=== PATIENT | female | born 1965 | race Caucasian/White ===

== ENCOUNTER 2020-06-15 07:39 | Day surgery (SDC) | payer BC ==
[2020-06-15] MEDS ORDERED: Dextrose 5%-Lactated Ringers 1,000 ML IV SCH (08:15)
[2020-06-15] MEDS ORDERED: Glycopyrrolate 0.2 MG/ML 2 ML SDV IVPUSH ONE (09:00)
[2020-06-15] MEDS ORDERED: Lidocaine 5% 700 MG Patch TRDERM ONE (10:03)
[2020-06-15] MEDS ORDERED: Midazolam 1 MG/ML 2 ML SDV ONE (11:22)
[2020-06-15] MEDS ORDERED: fentaNYL 100 MCG/2 ML SDV ONE (11:22)
[2020-06-15] MEDS ORDERED: Propofol 200 MG/20 ML SDV ONE ×2 (11:22→11:57)
[2020-06-15] MEDS ORDERED: Hydrocortisone Sodium Succinate 100 MG/2 ML SDV IVPUSH PRN (13:00)
[2020-06-15] MEDS ORDERED: diphenhydrAMINE 50 MG/ML SDV IVPUSH PRN (13:00)
--- NOTE | 2020-06-22 15:10 | OR ---
DATE OF PROCEDURE: 06/15/2020 SURGEON: Simon Martins MD PREOPERATIVE DIAGNOSES: 1. Status post laparoscopic band placement with severe gastroesophageal reflux disease. 2. Indication for screening colonoscopy. POSTOPERATIVE DIAGNOSES: 1. Status post laparoscopic band placement with severe gastroesophageal reflux disease with esophageal bile and food retention and associated reddened laryngopharynx associated with ongoing aspiration and then mild antral gastritis. 2. Colonoscopy showing 1 cm polyps at: a. Transverse colon. b. Mid sigmoid colon. OPERATIVE PROCEDURES: 1. Esophagogastroduodenoscopy with: a. Antral biopsies for CLOtest. b. Flexible colonoscopy with polypectomy by snare technique x2. ANESTHESIA: IV sedation. INDICATION FOR PROCEDURE: A 55-year-old status post laparoscopic adjustable gastric band placement in [place] around 15 years ago. She presents with worsening reflux over the last several months with some episodes of aspiration of gastric and esophageal contents. This is despite ongoing medical management and deflation of her band. After preoperative evaluation and discussion, she wished to proceed with upper GI endoscopy for investigation of her band status. She also meets criteria for screening colonoscopy and will undergo colonoscopy. Potential risks including bleeding and perforation were discussed, and the patient wishes to proceed. DETAILS OF PROCEDURE: The patient was taken to the operating room and placed in a left lateral decubitus position. IV sedation was administered, after which the upper GI endoscope was passed orally through the length of the esophagus and into the stomach with retroflexion view of the fundus and thereafter through the pyloric channel into the junction of the third and fourth portions of the duodenum. Findings included reddened laryngopharynx consistent with the patient's history of some episodes of aspiration. As one entered the esophagus, the esophageal sphincter, but was unremarkable; however, as one entered the esophageal body, the esophagus was noted to be strikingly dilated, particularly in the distal aspect there were extreme reddened areas of the esophagus diffusely with retained bile and some undigested solids. The scope easily passed through the imprint of the band, i.e., there was no mechanical obstruction. Within the antrum, there was some mild redness, otherwise the remainder of the stomach, pyloric channel, and visualized portions of the duodenum were unremarkable. At this point, biopsies were obtained from the antrum and sent for CLOtest for H pylori. Minimal bleeding from the biopsy site was seen and the procedure then concluded. Attention was then taken to the colonoscopy. Initial digital rectal exam was performed and was unremarkable. Colonoscope was then passed into the rectum with retroflexion revealing uncomplicated hemorrhoidal columns. Scope was then eventually passed into the level of the rectum with retroflexion revealing uncomplicated hemorrhoidal columns. Scope was then eventually passed to the level of the cecum. The prep was quite good. To that level, there were no diverticula or areas of colitis. There were 2 roughly 1 cm polyps; 1 in the transverse colon, 1 in the mid sigmoid colon. Both of these were excised by means of cautery and snare technique and sent for histologic evaluation. Good hemostasis was noted. Procedure then concluded and the patient was taken to the recovery room in satisfactory condition. With regard to the colonoscopy, recommendation would be to proceed with a repeat colonoscopy in 3 years assuming that the present polyps are premalignant. Otherwise, the patient at this point is developing severe complications related to the band and would be benefitted by conversion of band status to Carmella-en-Y gastric bypass. Her insurance company will be contacted regarding that application. Simon Martins MD /[id number]
== END 2020-06-15 14:30 | disposition home or self-care (01) ==
LOC: JP.SDS 07:39
PROVIDERS: ATTEND Surgery
DX: Z12.11 Encounter for screening for malignant neoplasm of colon (principal); D17.5 Benign lipomatous neoplasm of intra-abdominal organs; K63.5 Polyp of colon; K21.9 Gastro-esophageal reflux disease without esophagitis; K29.70 Gastritis, unspecified, without bleeding; K64.9 Unspecified hemorrhoids; E66.9 Obesity, unspecified; Z98.84 Bariatric surgery status; Z68.37 Body mass index [BMI] 37.0-37.9, adult
CPT/HCPCS: 87081; 88305; A9270-GY; J2250; J2704; J3010; J3490; J7121; Q0138

== ENCOUNTER 2020-08-07 05:33 | Inpatient (IN) | payer BC ==
[~2020-08-07 05:33] MED LIST: Acetaminophen 500 MG Tab PO ONE; Celecoxib 200 MG Cap PO ONE; Scopolamine 1.5 MG Transdermal Patch TRDERM ONE
[2020-08-07] MEDS ORDERED: Dextrose 5%-Lactated Ringers 1,000 ML IV SCH ×2 (06:00→12:15)
[2020-08-07] MEDS ORDERED: Meropenem 500 MG SDV ONE (06:28)
[2020-08-07] MEDS ORDERED: fentaNYL 250 MCG/5 ML SDV ONE ×2 (07:04→09:23)
[2020-08-07] MEDS ORDERED: Ondansetron 4 MG/2 ML SDV ONE (07:05)
[2020-08-07] MEDS ORDERED: Propofol 200 MG/20 ML SDV ONE (07:05)
[2020-08-07] MEDS ORDERED: Glycopyrrolate 0.2 MG/ML 5 ML MDV ONE (07:05)
[2020-08-07] MEDS ORDERED: Neostigmine Methylsulfate 1 MG/ML 5 ML Syringe ONE (07:05)
[2020-08-07] MEDS ORDERED: Dexamethasone 4 MG/ML SDV ONE (07:05)
[2020-08-07] MEDS ORDERED: Rocuronium 50 MG/5 ML Vial ONE (07:05)
[2020-08-07] MEDS ORDERED: Succinylcholine 200 MG/10 ML MDV ONE (07:05)
[2020-08-07] MEDS ORDERED: Lactated Ringers 1,000 ML ONE (07:08)
[2020-08-07] MEDS ORDERED: Meropenem 500 MG in Sodium Chloride 0.9% 50 ML IV ONE (07:15)
[2020-08-07] MEDS ORDERED: Ketamine 50 MG in Sodium Chloride 0.9% 49.5 ML IV SCH (07:30)
[2020-08-07] MEDS ORDERED: Ketamine 500 MG/5 ML MDV IV SCH (07:30)
[2020-08-07] MEDS ORDERED: Ropivacaine 44 ML, dexAMETHasone 8 MG, EPINEPHrine 0.4 MG, Sodium Chloride 0.9% 33.6 ML NERVRT SCH ×4 (07:30)
[2020-08-07] MEDS ORDERED: Magnesium Sulfate 2.6 GM in Sodium Chloride 0.9% 100 ML IV SCH (07:30)
[2020-08-07] MEDS ORDERED: Magnesium Sulfate 2.8 GM in Sodium Chloride 0.9% 250 ML IV ONE (08:00)
[2020-08-07] MEDS ORDERED: diphenhydrAMINE 50 MG/ML SDV ONE (10:42)
[2020-08-07] MEDS ORDERED: Cyclobenzaprine 10 MG Tab PO PRN (12:18)
[2020-08-07] MEDS ORDERED: Morphine 2 MG/ML SYRINGE IVPUSH PRN (13:00)
[2020-08-07] MEDS ORDERED: Acetaminophen 500 MG Tab PO PRN (13:00)
[2020-08-07] MEDS ORDERED: Metoclopramide 10 MG/2 ML SDV IVPUSH PRN (13:00)
[2020-08-07] MEDS ORDERED: Ondansetron 4 MG/2 ML SDV IVPUSH PRN (13:00)
[2020-08-07] MEDS ORDERED: oxyCODONE 5 MG Tab PO PRN (13:00)
[2020-08-07] MEDS ORDERED: Labetalol 20 MG/4 ML Syringe IVPUSH PRN (13:00)
[2020-08-07] MEDS ORDERED: diphenhydrAMINE 50 MG/ML SDV IVPUSH PRN (13:00)
[2020-08-07] MEDS ORDERED: hydrOXYzine HCL 100 MG/2 ML SDV IM PRN (13:00)
[2020-08-07] MEDS ORDERED: Calcium Gluconate 10% 1 GM/10 ML SDV IVPUSH PRN (13:00)
[2020-08-07] MEDS ORDERED: traMADol 50 MG Tab PO PRN (13:00)
[2020-08-07] MEDS ORDERED: Morphine 4 MG/ML Syringe IVPUSH PRN (13:00)
[2020-08-07] MEDS ORDERED: Meperidine PF 50 MG/ML Syringe IM PRN (13:31)
[2020-08-07] MEDS: Acetaminophen 500 MG Tab PO SCH ×2 (13:36→21:50)
[2020-08-07] MEDS: Pantoprazole 40 MG Vial IVPUSH SCH (13:36)
[2020-08-07] MEDS ORDERED: Meperidine PF 100 MG/ML Syringe IM PRN ×2 (14:00)
[2020-08-07] MEDS: Meropenem 500 MG in Sodium Chloride 0.9% 50 ML IV SCH ×2 (14:31→20:21)
[2020-08-07] MEDS: Heparin Sodium 5,000 Units/ML Vial SUBCUT SCH (15:43)
[2020-08-07] MEDS ORDERED: MVI, Adult with Vitamin K 10 ML, Thiamine 200 MG, Zinc/Copper/Manganese/Selenium 1 ML i... IV SCH ×4 (16:00)
[2020-08-08] MEDS: Meropenem 500 MG in Sodium Chloride 0.9% 50 ML IV SCH ×3 (02:57→13:38)
[2020-08-08] MEDS ORDERED: Iopamidol 612 MG/ML 50 ML SDV PO STA (03:04)
[2020-08-08] MEDS: Heparin Sodium 5,000 Units/ML Vial SUBCUT SCH ×2 (03:05→16:49)
[2020-08-08] MEDS: Acetaminophen 500 MG Tab PO SCH ×3 (05:37→21:29)
[2020-08-08] MEDS ORDERED: Dextrose 5%-Lactated Ringers 1,000 ML IV SCH (07:35)
[2020-08-08] MEDS ORDERED: hydrOXYzine HCl 25 MG Tab PO PRN (07:39)
[2020-08-08] MEDS ORDERED: Ondansetron 4 MG Tab.DIS PO PRN (07:39)
[2020-08-08] MEDS: Celecoxib 200 MG Cap PO SCH ×2 (08:58→21:29)
[2020-08-08] MEDS: SCOPOLAMINE PATCH CHECK TOP SCH (08:59)
--- NOTE | 2020-08-08 09:12 | CR ---
[facility] HISTORY: Postbariatric surgery FINDINGS: Patient swallowed water-soluble contrast. Upright views of the abdomen show no evidence of extravasation or obstruction. There is a surgical drain in the left upper quadrant. There is patchy left lower lobe airspace disease which may represent some atelectasis IMPRESSION: Status post bariatric surgery No extravasation or obstruction seen Moderate patchy airspace disease left lung base. This may represent some atelectasis. Infiltrate is not excluded. Short-term follow-up two-view chest recommended when patient's condition allows
--- NOTE | 2020-08-08 10:43 | PN ---
DATE OF SERVICE: 08/08/2020 SUBJECTIVE: Neha Ortiz is postoperative day #1. Her upper GI was normal. She had 400 mL in, 3475 mL out. BONNIE drain put out 60 mL of a serosanguineous drainage. She has been up ambulating and pain has been controlled per energy protocol. REVIEW OF SYSTEMS: Remainder of review of systems negative for any pertinent positives and negatives. OBJECTIVE: GENERAL: Neha Ortiz is a pleasant 55-year-old female. She is alert and orientated. VITAL SIGNS: TPR 97.4, 70, 16, blood pressure 98/63. HEENT: Negative. NECK: Supple. HEART: Regular rate and rhythm. LUNGS: Clear. ABDOMEN: Dressing dry and intact. BONNIE drain as above. EXTREMITIES: Without peripheral edema. ASSESSMENT: 1. Laparoscopic Carmella-en-Y gastric bypass surgery. 2. Liver biopsy. 3. Removal of laparoscopic adjustable gastric band components. 4. Partial gastrectomy. 5. Repair of diaphragmatic hernia. POSTOPERATIVE DIAGNOSES: 1. Intact lap band with persistent morbid obesity. 2. Hepatomegaly. 3. Area of gastric ischemia. 4. Status post takedown band, laparoscopic gastric band component. 5. Repair of paraesophageal diaphragmatic hernia. 6. Date of surgery: 08/07/2020. Surgeon: Simon Martins MD. PLAN: 1. Discontinue Little catheter. 2. Decrease IV to 60 mL per hour. 3. Step 1 gastric bypass diet with milk and then protein drinks. No yogurt and no pudding. 4. Atarax 25 mg q.4 hours p.r.n. pain. 5. Zofran ODT 4 mg q.4 hours p.r.n. nausea. 6. Discontinue cardiac monitoring. 7. Dressing off, may shower. 8. Discontinue demerol IM for pain management. 9. Continue use of incentive spirometer. 10.Communication order written for the patient to have 3 med cups at bedside and to drink 1 every 20 minutes totaling 3 per hour. 11.Evaluate p.r.n. or in a.m. Elizabeth Terry PA-C /[id number]
[2020-08-08] MEDS: Pantoprazole 40 MG Vial IVPUSH SCH (13:39)
[2020-08-08] MEDS ORDERED: MVI, Adult with Vitamin K 10 ML, Thiamine 200 MG, Zinc/Copper/Manganese/Selenium 1 ML i... IV SCH ×4 (16:00)
[2020-08-08] MEDS ORDERED: Pantoprazole 40 MG Tab.CR PO SCH (16:30)
[2020-08-09] MEDS: Heparin Sodium 5,000 Units/ML Vial SUBCUT SCH (05:13)
[2020-08-09] MEDS: Acetaminophen 500 MG Tab PO SCH (05:13)
[2020-08-09] MEDS: Celecoxib 200 MG Cap PO SCH (08:25)
[2020-08-09] MEDS: SCOPOLAMINE PATCH CHECK TOP SCH (08:25)
[2020-08-09] MEDS ORDERED: Cyanocobalamin (Vitamin B12) 1,000 MCG/ML SDV IM ONE (09:00)
--- NOTE | 2020-08-09 13:20 | DISCH ---
ADMISSION DIAGNOSES: 1. Morbid obesity. 2. BMI of 39.1. 3. Intolerance to laparoscopic gastric band. 4. Dyslipidemia. 5. Osteoarthritis. DISCHARGE DIAGNOSES: 1. Laparoscopic Carmella-en-Y gastric bypass surgery. 2. Liver biopsy. 3. Removal of laparoscopic adjustable gastric band component. 4. Partial gastrectomy. 5. Repair of diaphragmatic hernia. POSTOPERATIVE DIAGNOSIS: 1. Intact lap band with persistent morbid obesity. 2. Hepatomegaly. 3. Area of gastric ischemia from laparoscopic gastric band. 4. Status post takedown band, laparoscopic gastric band component. 5. Repair of paraesophageal diaphragmatic hernia. 6. Date of surgery: 08/07/2020. Surgeon: Simon Martins MD. HISTORY: Neha is a pleasant 55-year-old female with a laparoscopic adjustable gastric band and persistent weight gain with intolerance to lap band. After preoperative evaluation and discussion of possible risks and possible complications, she wished to proceed with surgical procedure. HOSPITAL COURSE: Neha had her surgery on 08/07/2020. She had no operative complications. On postoperative day #1, her upper GI was normal. She was started on a step 1 gastric bypass diet with milk and protein drinks. Recommend no yogurt and no pudding. Little catheter was discontinued. She was changed to oral pain medication. Pain was well managed with energy protocol. On postoperative day #2, Neha was tolerating a step 1 gastric bypass diet with milk and protein drinks. Vital signs were stable. Activity was good. Oral intake 1880. Urine output 2700. BONNIE drain put out 30 mL of a serosanguineous drainage. Pain was controlled solely by energy protocol and she had adequate bariatric diet teaching, and she was able to be discharged to home without any complications. PHYSICAL EXAMINATION: GENERAL: Neha is a pleasant 55-year-old female. VITAL SIGNS: Height is 5 feet 2 inches, weight is 200 pounds. TPR; 97.9, 58, 16. Blood pressure 119/67. HEENT: Negative. NECK: Supple. HEART: Regular rate and rhythm. LUNGS: Clear. ABDOMEN: Sutures intact in trocar sites, healing well. BONNIE drain will be removed before discharge. EXTREMITIES: Without peripheral edema. DISPOSITION: Discharged to home. CONDITION: Stable and improving. FOLLOWUP: Followup appointment with Elizabeth Terry PA-C, 08/20/2020 at 10 a.m. HOME MEDICATIONS: Tylenol 1000 mg p.o. q.8 hours scheduled, Celebrex 200 mg p.o. b.i.d., Zofran ODT 4 mg p.o. q.4 hours p.r.n. nausea and vomiting. She will stop all vitamins and supplements until after 1st postop appointment. DIET: Step 1 gastric bypass diet with milk and protein drinks only until 1st appointment. ACTIVITY: No lifting greater than 10 pounds for 2 weeks. Walk 6 times inside your home daily. Driving, do not drive for 1 week. SHOWER/BATHING: May shower. DISCHARGE INSTRUCTIONS: Keep operative sites clean and dry. Wear abdominal binder for 2 weeks if tolerated. Notify provider if any fever, increased pain, swelling, redness, drainage, nausea, vomiting. SPECIAL INSTRUCTIONS: Use incentive spirometer 10 times every hour while awake for 1 week. Keep a record of protein and liquid intake and bring to clinic appointment. /[id number]
--- NOTE | 2020-08-20 09:02 | OR ---
DATE OF PROCEDURE: 08/07/2020 SURGEON: Simon Martins MD PREOPERATIVE DIAGNOSIS: Intolerance to laparoscopic adjustable gastric band with persistent morbid obesity. POSTOPERATIVE DIAGNOSES: 1. Intolerance to laparoscopic adjustable gastric band with persistent morbid obesity. 1. Hepatomegaly. 2. Area of gastric ischemia status post takedown of band. 3. Paraesophageal diaphragmatic hernia. OPERATIVE PROCEDURES: 1. Laparoscopic Carmella-en-Y gastric bypass with long limb gastroenterostomy (39474). 2. Erik-Cut needle liver biopsy (90777). 3. Removal of laparoscopic adjustable gastric band components (43297). 4. Partial gastrectomy (23614). 5. Repair of paraesophageal diaphragmatic hernia (20864). ANESTHESIA: General. ORNITHOLOGY TEACHER: Elizabeth Terry PA-C INDICATIONS FOR PROCEDURE: This is a 55-year-old female status post previous laparoscopic gastric band placement in [place], [place] who presents now with increasing problems with esophageal dilation, severe reflux, and regurgitation. Given this, the patient has to have the band removed and converted to a Carmella-en-Y gastric bypass status. Potential risks of the procedure including bleeding, infection, injury to underlying viscera, leaks from various GI tract closures, problems with bowel obstruction over time as well as possibility of cardiopulmonary, septic, or hemorrhagic complications leading to were discussed, and the patient wishes to proceed. DETAILS OF PROCEDURE: The patient was taken to the operating room. After general endotracheal anesthesia was induced, she was placed in a lithotomy position and a Little catheter inserted following which the abdomen was prepped and draped. At 15 cm inferior and 5 cm left of the xiphoid process, a transverse incision was made and peritoneal cavity entered under direct vision with an Optiview trocar inflated to 15 mmHg pressure with CO2. Laparoscope was reinserted. No underlying trocar insertion site injuries were seen. Following this, 5 additional trocars were placed across the upper and mid abdomen and general exploration was undertaken. Bilateral transversus abdominis plane blocks were placed and the liver was initially evaluated and found to be quite enlarged. Erik-Cut needle biopsy was obtained from the left lobe of the liver. Minimal bleeding from biopsy site was controlled with electrocautery. At this point, the port tubing was divided close to the point where it exited the abdominal wall, so it would not be visibly in the way during the formation of the Carmella-en-Y small bowel segment. The omentum was then divided in the midline up to the mid portion of the transverse colon. This allowed identification of the small bowel at the ligament of Treitz. The small bowel was then traced out 150 cm distal to that point. It was divided transversely with a TARI stapler. Small bowel was then traced out additional 150 cm where the [id number] enteroenterostomy was accomplished with internal firing of the Endo-TARI 60 mm stapler. Common opening was then closed transversely with the same stapler and the angles anastomosed and mesenteric defect approximated with some 0 Ethibond stitch along with 4 mL of fibrin sealant. The divided end of the Carmella limb was then from the mesentery for a few centimeters which allowed an antecolic position of the Carmella limb up to the level of the esophagogastric junction without significant tension. The liver was retracted anteriorly. The patient was noted to have quite a bit in the way of adhesions between the liver and the area of the band complex. These were taken down with Harmonic scalpel. Once the dissection in that plane up to the level of the diaphragm was accomplished, the band itself was dissected away from its area of adherence. As one divided the band away in the left upper aspect of the band, there was a significant area of gastric deserosalization and ischemia and this area was excised by means of TARI black loads and gastric specimen delivered from the field. The band was then eventually freed up of the attachments such that it was mobile within the band tunnel and the band was then divided allowing the band to be removed from that tunnel. The band components thus removed were taken out through the left lateral trocar site. The band imprint appeared to be in appropriate level for the pouch formation and some of the fibrous tissue within the band imprint was then debrided away using a combination of blunt and electrocautery. This then allowed formation of the pouch by serial firings of the TARI black loads dividing the band imprint and somewhat to the left of that to be sure that all of the connections to the upper aspect via the gastric pouch were from the remainder of the stomach. With the pouch having been formed, the patient was noted to have significant paraesophageal diaphragmatic hernia with prolapse of fatty tissue posterior to the gastric pouch, including some redundant gastric tissue in that area. This was reduced and the posterior repair accomplished with 0 Ethibond sutures reinforced with PTFE pledgets. The anvil of a 25 mm EEA stapler was then attached to a Emanuel sump type tube and brought down through the mouth. Initially, the point of the end of the gastric pouch could not be well visualized as there appeared to be quite a bit in the way of scarring in that area. The gastroscope was then utilized which then did delineate the inferior-most aspect of the newly constructed pouch and a biopsy forceps was then brought up against that area and the surface cauterized allowing the biopsy forceps to enter the peritoneal cavity. This was then used to grasp a 2-0 Vicryl stitch which was pulled up through the left lateral trocar site, up through the esophagus, and out of the mouth. This then allowed this to be sutured to the end of the Emanuel sump type tube attached to the anvil allowing the anvil likewise to be pulled down within the gastric pouch without difficulty. The divided end of the Carmella limb was then opened and the main body of the EEA stapler passed several centimeters into the lumen of the small bowel, brought up the anvil and united with it, thus creating the gastrojejunostomy. Upon removal of the stapler, double donuts of mucosa were noted within it. The small bowel was closed off with a vascular staple line. Gastrojejunostomy was reinforced with some 3-0 Vicryl seromuscular stitch along with 4 mL of fibrin sealant. A leak test was accomplished with injection of air into the gastric pouch while it was submerged with cefoxitin-containing saline solution. No leaks were identified. A single Sesar-Toussaint drain was then placed adjacent to the gastrojejunostomy and taken out through the left lateral trocar site. The remaining trocars were then removed and the peritoneal cavity deflated. Finally, the incision over the port was enlarged. The left lateral trocar site initially was over the lateral aspect of that. This would continue medially and the port was dissected away from the soft tissues and delivered from the field along with the remaining portion of the port tubing which was matched up by means of a bisected arrow at the time of the original division of the tubing to confirm that the entire tubing had been removed. At this point, the Sesar-Toussaint drain was sutured to the skin at the left lateral trocar site and remaining trocar site sutured to the skin as well with 4-0 Vicryl stitch and a dressing applied. The patient was taken to the recovery room in satisfactory condition. Physician medical claims assistant, Elizabeth Terry played an essential role in assisting in this case, helping to position the patient, retract structures as needed as well as suturing and cutting sutures when indicated. Her presence improved patient safety and decreased the operative time. Simon Martins MD /[id number]
== END 2020-08-09 11:19 | disposition home or self-care (01) | DRG 220 ==
LOC: JP.SDSSCHI 05:33 → JP.SDS 05:33 → JP.MS 07:25 → EDSTATUS 08:15
PROVIDERS: ADMIT Surgery; ATTEND Surgery
PROC: 0D164ZA Bypass Stomach to Jejunum, Percutaneous Endoscopic Approach (ICD-10-PCS; principal; 2020-08-07)
PROC: 0FB03ZX Excision of Liver, Percutaneous Approach, Diagnostic (ICD-10-PCS; 2020-08-07)
PROC: 0DP64CZ Removal of Extraluminal Device from Stomach, Percutaneous Endoscopic Approach (ICD-10-PCS; 2020-08-07)
PROC: 0DB64ZZ Excision of Stomach, Percutaneous Endoscopic Approach (ICD-10-PCS; 2020-08-07)
PROC: 0BQT4ZZ Repair Diaphragm, Percutaneous Endoscopic Approach (ICD-10-PCS; 2020-08-07)
DX: K55.059 Acute (reversible) ischemia of intestine, part and extent unspecified (principal); E66.01 Morbid (severe) obesity due to excess calories; K95.01 Infection due to gastric band procedure; K44.9 Diaphragmatic hernia without obstruction or gangrene; Z68.39 Body mass index [BMI] 39.0-39.9, adult; E78.5 Hyperlipidemia, unspecified; M19.90 Unspecified osteoarthritis, unspecified site; R16.0 Hepatomegaly, not elsewhere classified
CPT/HCPCS: 36415; 74240; 74240-26; 82728; 82947; 86850; 86900; 86901; 88300; 88307; 88313; 94762; A9270-GY; C9113; J0171; J0330; J1100; J1200; J1644; J2175; J2185; J2405; J2704; J2710; J2795; J3010; J3411; J3420; J3475; J3490; J7050; J7120; J7121; Q9967

== ENCOUNTER 2020-10-25 07:13 | Day surgery (SDC) | payer BC ==
[2020-10-25] MEDS ORDERED: fentaNYL 100 MCG/2 ML SDV ONE (07:58)
[2020-10-25] MEDS ORDERED: Midazolam 1 MG/ML 2 ML SDV ONE (07:58)
[2020-10-25] MEDS ORDERED: Propofol 200 MG/20 ML SDV ONE (07:58)
[2020-10-25] MEDS ORDERED: Lactated Ringers 1,000 ML IV ONE (08:00)
[2020-10-25] MEDS ORDERED: Cyanocobalamin (Vitamin B12) 1,000 MCG/ML SDV IM ONE (09:00)
[2020-10-25] MEDS ORDERED: MVI, Adult with Vitamin K 10 ML, Thiamine 200 MG, Zinc/Copper/Manganese/Selenium 1 ML i... IV ONE ×4 (09:00)
[2020-10-25] MEDS ORDERED: Glycopyrrolate 0.2 MG/ML 2 ML SDV IVPUSH ONE (09:15)
[2020-10-25] MEDS ORDERED: Dexamethasone 4 MG/ML SDV ONE (09:49)
--- NOTE | 2020-10-26 15:02 | OR ---
DATE OF PROCEDURE: 10/25/2020 SURGEON: Simon Martins MD PREOPERATIVE DIAGNOSIS: Laryngopharyngeal dysphagia. POSTOPERATIVE DIAGNOSES: 1. Laryngopharyngeal dysphagia associated with slight redness within hypopharynx. 2. 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 OPERATIVE PROCEDURES: Upper gastrointestinal endoscopy with dilation of gastrojejunostomy (01327). ANESTHESIA: IV sedation. INDICATIONS FOR PROCEDURE: A 55-year-old status post band conversion of Carmella-en-Y gastric bypass on 08/07/2020, presenting with some laryngopharyngeal type dysphagia. Plan is to proceed with upper GI endoscopy with biopsies and/or dilation as indicated. Potential risks including bleeding and perforation were discussed, and the patient wishes to proceed. DETAILS OF PROCEDURE: The patient was taken to the operating room and placed in a left lateral decubitus position. IV sedation was administered after which the upper GI endoscope was passed orally through the length of the esophagus and into the gastric pouch and to the level of the gastrojejunostomy. There was very slight redness in the hypopharynx. Vocal cords and epiglottis were otherwise unremarkable. No blood or bleeding was seen. No stricturing identified in the upper airway area. The upper esophageal sphincter, esophageal body, and EG junction area were unremarkable as was the gastric pouch. There was a slight narrowing at the gastrojejunostomy, not quite admitting the 1 cm scope. A Bard gastrointestinal catheter was centered across that anastomosis and inflated to 36-B[place] size level 1, and at that point, the balloon catheter was deflated and withdrawn. The scope was easily passed through the anastomosis. No complications were noted, and the procedure was then concluded. At this point, it is unclear what might be causing the redness and laryngopharyngeal dysphagia. It is possible she may have some retained food in the esophagus at times causing some irritation, but we will take a watchful waiting approach with regard to this issue. She will be following up with Elizabeth Terry PA-C, in roughly 1 week. Simon Martins MD /[id number]
== END 2020-10-25 11:21 | disposition home or self-care (01) ==
LOC: JP.SDS 07:13
PROVIDERS: ATTEND Surgery
DX: R13.13 Dysphagia, pharyngeal phase (principal); Z98.84 Bariatric surgery status
CPT/HCPCS: 43245; C1726; J1100; J2250; J2704; J3010; J3411; J3420; J3490; J7120